=== PATIENT | female | born 1945 | race Caucasian/White ===

== ENCOUNTER → 2018-11-18 | Outpatient (CLI) | payer MEDICARE | END | disposition home or self-care (01) | LOC: PREOP 05:45 | PROVIDERS: ATTEND Surgery | DX: Z01.818 Encounter for other preprocedural examination (principal) ==

== ENCOUNTER 2018-11-25 09:49 | Day surgery (SDC) | payer MEDICARE ==
[~2018-11-25] VITALS: Ht 162.6 cm; Wt 77.1 kg
[2018-11-25 09:55] VITALS: BP 175/88
[2018-11-25] MEDS ORDERED: LACTATED RINGERS 1,000 ML IV STA (10:19)
[2018-11-25] MEDS ORDERED: HURRICAINE EXT TUBE (BENZOCAINE) XX PRN (10:30)
[2018-11-25] MEDS ORDERED: MIDAZOLAM 2 MG/2 ML (VERSED) VIAL ONE (10:32)
[2018-11-25] MEDS ORDERED: proPOfol 200 MG/20 ML (DIPRIVAN) VIAL IV ONE ×2 (10:32→12:00)
[2018-11-25] MEDS ORDERED: HURRICAINE EXT TUBE (BENZOCAINE) ONE (11:08)
--- NOTE | 2018-11-25 11:27 | Progress Note-Pre Operative ---
Pre-Operative Progress Note H&P Reviewed The H&P was reviewed, patient examined and no changes noted. Date Seen by Provider: Nov 25, 2018 Time Seen by Provider: : Date H&P Reviewed: Nov 25, 2018 Time H&P Reviewed: : Pre-Operative Diagnosis: cough, dysphagia, gerd, screening colon ALLEN CARTY DO Nov 25, 2018 11:27
[2018-11-25] MEDS ORDERED: GLUCOSAMINE PO (11:37)
[2018-11-25] MEDS ORDERED: LISI-556 PO (11:37)
[2018-11-25] MEDS ORDERED: FISH OIL PO (11:37)
[2018-11-25] MEDS ORDERED: OMEP20TA7 PO (11:37)
[2018-11-25] MEDS ORDERED: MELOXICAM PO (11:37)
[2018-11-25] MEDS ORDERED: PRAVASTATIN PO (11:37)
[2018-11-25] MEDS ORDERED: MULT-974 PO (11:37)
[2018-11-25] MEDS ORDERED: ASPI-586 PO (11:37)
[2018-11-25 12:40] VITALS: BP 135/64
[2018-11-25 13:10] VITALS: BP 177/87
--- NOTE | 2018-11-25 13:18 | Progress Note-Post Operative ---
Post-Operative Progess Note Surgeon (s)/Call Center Operator (s) Surgeon ALLEN CARTY DO Call Center Operator: na Pre-Operative Diagnosis cough, dysphagia, gerd, screening colon Post-Operative Diagnosis hiatal hernia, schatski's ring minimal, normal colon Procedure & Operative Findings Date of Procedure 11/25/18 Procedure Performed/Findings egd c biopsies and colonoscopy Anesthesia Type per [facility] Estimated Blood Loss Estimated blood loss (mL): na Specimens/Packing Specimens Removed antrum, ge ALLEN CARTY DO Nov 25, 2018 13:18
[2018-11-25] MEDS ORDERED: PANT40TA2 PO (13:19)
--- NOTE | 2018-11-25 13:20 | Discharge Inst-Simple/Standard ---
Discharge Inst-Standard Discharge Medications New, Converted or Re-Newed RX: RX on Chart Patient Instructions/Follow Up Plan of Care/Instructions/FU: 2-3 weeks Rasta Activity as Tolerated: Yes Discharge Diet: Regular Diet ALLEN CARTY DO Nov 25, 2018 13:20
[2018-11-25 13:40] VITALS: BP 177/87
--- NOTE | 2018-11-25 16:29 | Anesthesia-General Post-Op ---
MAC Patient Condition Mental Status/LOC: Same as Preop Cardiovascular: Satisfactory Nausea/Vomiting: Absent Respiratory: Satisfactory Pain: Controlled Complications: Absent Post Op Complications Complications None Follow Up Care/Instructions Patient Instructions None needed. Anesthesiology Discharge Order Discharge Order Patient is doing well, no complaints, stable vital signs, no apparent adverse anesthesia problems. No complications reported per nursing. KELLEY VAUGHN CRNA Nov 25, 2018 16:29
--- NOTE | 2018-11-25 19:43 | OPERATIVE REPORT ---
DATE OF SERVICE: 11/25/2018 PREOPERATIVE DIAGNOSES: Cough, dysphagia, gastroesophageal reflux disease, screening colonoscopy. POSTOPERATIVE DIAGNOSES: Hiatal hernia, Schatzki's ring minimal, normal colon. PROCEDURE: EGD with biopsies and colonoscopy. SURGEON: Allen Magdaleno DO ANESTHESIA: Per MDA. ESTIMATED BLOOD LOSS: None. INDICATIONS: The patient is a 73-year-old female with chronic cough, dysphagia and reflux symptoms. She also has never had colonoscopy. She understands risks and benefits of procedures and wished to proceed with procedures. Consent was signed in the chart. DESCRIPTION OF PROCEDURE: The patient was taken to the endoscopy suite, placed in left lateral recumbent position. Timeout was performed. Scope was inserted into the mouth, down the esophagus, stomach and into the duodenum without difficulty. There were no polyps, masses or ulcerations within the duodenum. Scope was slowly retracted back into the stomach where it was further insufflated. There were no polyps, masses or ulcerations. Biopsy of the antrum was obtained. Scope was retroflexed hiatal hernia, no other pathology. Scope was returned to its normal position, slowly withdrawn to the distal esophagus, had very thin Schatzki's ring. Biopsy of the GE junction was obtained. Scope was then slowly retracted back noting no other pathology. Digital rectal exam was performed. There were no palpable polyps, mass or ulcerations. The scope was inserted in the rectum, advanced all the way to the cecum with minimal difficulty. There are no polyps, masses or ulcerations. Prep was adequate. Scope was then slowly retracted back. No polyps, mass or ulceration in the cecum, ascending, transverse, descending and sigmoid colon. Once in the rectum, scope was retroflexed noting no other pathology. Scope was returned to its normal position, slowly withdrawn until completely removed. The patient tolerated the procedure well without any complications. She was taken to the recovery room in stable condition. RECOMMENDATIONS: The patient will need repeat colonoscopy in 10 years unless family history of colon cancer, which would then be 5 years if benefits outweigh risks. If she has any issues before that, she should be seen at that time. The patient also have omeprazole stopped and start Protonix 40 mg daily. We will see if this makes any change in her symptoms. We would also consider changing lisinopril. Job ID: [id number] DocumentID: [id number] Dictated Date: 11/25/2018 13:23:35 Ict Programmer Date: 11/25/2018 19:42:42 Dictated By: ALLEN MAGDALENO DO
== END 2018-11-25 13:40 | disposition home or self-care (01) ==
LOC: ENDO 09:49
PROVIDERS: ATTEND Surgery
DX: Z12.11 Encounter for screening for malignant neoplasm of colon (principal); K22.2 Esophageal obstruction; K29.50 Unspecified chronic gastritis without bleeding; B96.81 Helicobacter pylori [H. pylori] as the cause of diseases classified elsewhere; K21.9 Gastro-esophageal reflux disease without esophagitis; I10 Essential (primary) hypertension; E78.5 Hyperlipidemia, unspecified; Z79.82 Long term (current) use of aspirin; Z79.899 Other long term (current) drug therapy
CPT/HCPCS: 43239; G0121